=== PATIENT | male | born 1950 | race Caucasian/White ===

== ENCOUNTER 2021-04-20 07:40 | Emergency (ER) | payer MEDICARE, SELFPAY ==
[2021-04-20] VITALS (10 sets, daily range): BP systolic 98–133; BP diastolic 67–85; PULSE 62–74; RESP 12–23; TEMP 36.2; O2SAT 94–100; BMI 23.0
--- NOTE | 2021-04-20 08:45 | CT_ITS ---
STUDY: CT ABDOMEN AND PELVIS WITH CONTRAST REASON FOR EXAM: Male, 71 years old. Hematuria, anorexia/weight loss -- NO po contrast needed. RADIATION DOSAGE (If Supplied By Facility): CTDIvol = ( 8.86 ) mGy, DLP = ( 402.48 ) mGycm TECHNIQUE: Transaxial images were obtained from the dome of the diaphragm to the symphysis pubis without oral contrast. IV 75mL Isovue-300 was administered. Sagittal and coronal images were reconstructed. Individualized dose optimization techniques were used for this CT. COMPARISON: None. FINDINGS: The visualized lung bases are unremarkable. The visualized portions of the heart are within normal limits. Ascites. Multiple hypodense nodules are seen throughout both lobes of the liver suggestive of metastatic disease. There is evidence of a periportal and peripancreatic lymphadenopathy. Diffuse gallbladder wall thickening with the pericholecystic fluid. Findings suggestive of a tiny gallstones within the gallbladder lumen. Normal spleen. There is a 3.6 cm x 2.5 cm hypodense mass in the tail portion of the pancreas. A pancreatic neoplastic process should be ruled out. Normal bilateral adrenal glands. Bilateral renal atrophy. Normal visualized stomach. Normal small intestine. Normal colon. The appendix is visualized and appears normal. There is diffuse atherosclerotic calcification of the abdominal aorta, without a demonstrated aneurysm. Normal inferior vena cava. There is borderline retroperitoneal lymphadenopathy with enlarged nodes no greater than 10mm in the short axis diameter. A suprapubic catheter is seen within the urinary bladder. The urinary bladder is empty and there is evidence of diffuse bladder wall thickening and large mass of the urinary bladder. Normal abdominal wall. There are degenerative changes of the visualized lumbar spine. Marked deformity of the femoral head and neck with flattening and subchondral cystic spaces. There is evidence of a screw fixation overlying the right greater trochanter. Is also evidence of a well-defined bony densities in the right hip joint suggestive of osteochondromatosis. CT/Abdomen/Pelvis WITH Contrast IMPRESSION: Findings suggestive of a pancreatic carcinoma with diffuse hepatic metastasis and periportal and peripancreatic lymphadenopathy. Diffuse ascites. Thickened gallbladder wall and small gallstones. Diffusely thickened urinary bladder wall and possible bladder mass with a suprapubic catheter. Electronically Signed: Jerrod Sheets MD at 10:49 EDT , Service support ,
--- NOTE | 2021-04-20 08:45 | EKG12_ITS ---
Test Reason : SOB Blood Pressure : / mmHG Vent. Rate : 059 BPM Atrial Rate : 059 BPM P-R Int : 140 ms QRS Dur : 084 ms QT Int : 426 ms P-R-T Axes : 064 053 060 degrees QTc Int : 421 ms Sinus bradycardia Otherwise normal ECG Confirmed by ROB SHANE, LULU ([id number]), offline editor LEBRON GARCÍA ([id number]) on 04/24/2021 7:52:01 AM Referred By: KATERYNA Confirmed By:LULU RIVAS MD
--- NOTE | 2021-04-20 08:47 | ED.VIS.DYS ---
HPI History of Present Illness Chief Complaint: Shortness of Breath Informant: patient Onset/Context/Timing Onset: Month(s) (several) Context: gradual Quality: Positive for Dyspnea on exertion Current Severity: Gone (at rest) Maximum Severity: Severe (Going up steps) Worsened by: Exertion Relieved by: Rest Associated Symptoms Negative for cough Chest Pain: Positive for None Narrative Narrative: Patient presents from for several symptoms that have been present for weeks and/or months. Dyspnea with exertion has been the longest, followed by loss of appetite/anorexia, and hematuria without clots or urinary retention for maybe 2 weeks. He denies any pain anywhere including his abdomen, back, chest. He states he just sits at home and watches TV and does not go anywhere. He has a roommate who has been worried about him and brought him to the ER today for evaluation. He has a PCP that he sees occasionally. He was vaccinated against Covid and is fully vaccinated. He has not been around anyone who has had Covid that he knows of. He has a suprapubic catheter that has been there for some time, he gets monthly changes at the PCP office at [facility], he does not know why he needs it. [facility] Medical History HTN (hypertension) Home Medications amlodipine 10 mg PO DAILY 04/20/21 [History Last Taken Unknown] lisinopril 20 mg PO BID 04/20/21 [History Last Taken Unknown] metoprolol tartrate 100 mg PO BID 04/20/21 [History Last Taken Unknown] Allergy/AdvReac Type Severity Reaction Status Date / Time No Known Allergies Allergy Verified 04/20/21 07:42 Social History Smoking Status: Current every day smoker tobacco type: cigarettes ROS ROS ED Constitutional Constitutional ED: Reports anorexia, poor appetite and weight loss; Denies chills or fever(s) Eyes Eyes: Denies change in vision or diplopia ENT ENT ED: Denies rhinorrhea or sore throat Cardiovascular Cardiovascular: Denies chest pain or palpitations Respiratory/Chest Respiratory/Chest: Reports dyspnea on exertion; Denies cough Gastrointestinal Gastrointestinal: Denies abdominal pain, diarrhea, nausea or vomiting Genitourinary Genitourinary ED: Reports hematuria; Denies dysuria Musculoskeletal Musculoskeletal: Denies back pain or neck pain Integumentary Denies abscess or rash Neurologic Neurologic: Denies headache(s), paresthesias or weakness Psychiatric Psychiatric: Reports depression; Denies anxiety, confusion or suicidal thoughts EXAM Physical Exam Const Vital Signs: 04/20/21 07:42 04/20/21 07:59 04/20/21 08:45 Temperature 97.1 F L 97.1 F L 97.1 F L Temperature Source Temporal Temporal Temporal Pulse Rate 73 64 64 Respiratory Rate 12 23 H 18 Respiratory Effort Normal Non-Labored Respiratory Depth Normal Respiratory Pattern Normal Blood Pressure 106/74 108/85 H 98/67 Blood Pressure Mean 84 92 77 Pulse Ox 100 98 95 Oxygen Delivery Method Room Air Room Air Room Air Oxygen Flow Rate (L/min) 04/20/21 09:00 04/20/21 10:00 04/20/21 10:07 Temperature 97.1 F L 97.1 F L Temperature Source Temporal Temporal Pulse Rate 69 69 69 Respiratory Rate 16 16 16 Respiratory Effort Respiratory Depth Respiratory Pattern Blood Pressure 133/76 H 133/76 H 133/76 H Blood Pressure Mean 95 95 95 Pulse Ox 98 98 98 Oxygen Delivery Method Room Air Room Air Room Air Oxygen Flow Rate (L/min) 04/20/21 11:28 04/20/21 13:08 04/20/21 13:12 Temperature Temperature Source Pulse Rate 62 74 Respiratory Rate 14 20 H Respiratory Effort Respiratory Depth Respiratory Pattern Blood Pressure 106/70 103/76 103/76 Blood Pressure Mean 82 85 85 Pulse Ox 95 94 Oxygen Delivery Method Nasal Cannula Nasal Cannula Oxygen Flow Rate (L/min) 2 2 Positive well nourished, well developed and cachectic General Appearance ED: well developed, cachectic and NAD Nutritional Appearance: cachectic HEENT Reports moist mucous membranes normocephalic and atraumatic Eyes PERRL and EOMs intact bilaterally Neck full ROM and supple Neck Narrative: No lymphadenopathy and no Virchow' s nodes palpable. Resp clear to auscultation bilaterally Resp Narrative: Very diminished throughout all lung kim without any adventitious breath sounds or distress. Speaking full sentences. Cardio regular rate and regular rhythm Cardio Narrative: Very faint heart sounds Jugular Venous Distention: Negative for JVD GI non-tender and non-distended Auscultation: normoactive bowel sounds Palpation: soft Back/Spine no CVA tenderness General Back: other FROM Extremity normal to inspection General Extremety ED: Negative for edema, pulses abnormal or tenderness General Extremity: Negative for edema or pulses abnormal Neuro oriented x3, CN's II-XII intact bilaterally and no sensory deficits noted Sensorium / Orientation: awake and alert Motor Exam: strength 5/5 throughout Skin no rashes or lesions noted and no wounds MDM MDM MDM Narrative Medical decision making narrative: Unfortunately, this patient has multiple issues, the worst of which appears to to likely be metastatic pancreatic carcinoma. He also has a mass in his bladder that was probably causing the hematuria which is not present at this time grossly or on urinalysis. His elevated renal numbers are probably mostly due to dehydration. He has a leukocytosis without signs of any infection. Liver enzyme elevation including hyperbilirubinemia likely due to multiple hepatic masses. His chest x-ray and EKG are unremarkable, his dyspnea with exertion has been present for months, is likely chronic obstructive pulmonary process. He is not tachycardic, oxygen levels are 100% on room air, he is on metoprolol but I do not think this is likely pulmonary embolus. Patient's vital signs are normal. He clinically is stable and having no hematuria right now or urinary retention. I had a magalie discussion with him about the possibility of metastatic pancreatic cancer and the poor prognosis that confers. I think he has the capacity to understand this and make decisions for himself right now. Initially he just wanted to go home but I discovered that was more related to his insurance and him thinking that it would not be taken at this hospital, which is not the case. He was amenable to admission but really does prefer to go home. The patient certainly needs an oncology work-up, however I am not confident that he requires inpatient stay at this time. He does not want to be on hospice, and before making decisions about palliative care/hospice, he wants to know more about what he is dealing with with certainly I understand. Discussed with palliative care team here, it is Friday afternoon and no one is available to perform a consult on this patient today. They would be happy to see him as an outpatient and they agree that the consultation would be perfectly reasonable given his situation. I also discussed with one of the hospitalist, who opines that other than IV fluids which we provided for him in the emergency department, there would not be a lot to do as an inpatient, and agree that the patient could be reasonably managed as an outpatient if the patient's PCP is on board. I discussed with Dr. Bonilla his PCP, and he agreed to follow-up with him after the weekend and help him with direction and consultations. I will also refer the patient to our palliative care clinic since there is not a [facility] palliative care clinic in [place] that I am aware of. This was all discussed with the patient is comfortable with this overall plan we discussed reasons to return. Lab Data Attestation: I reviewed the patient's lab results. Labs: Laboratory Results - last 24 hr 04/20/21 04/20/21 04/20/21 07:55 07:55 08:53 WBC 18.3 H RBC 4.44 L Hgb 14.2 Hct 39.2 L MCV 88.3 MCH 32.0 MCHC 36.2 H RDW Std Deviation 42.1 RDW Coeff of [place] 13.1 Plt Count 251 MPV 10.1 Immature Gran % (Auto) 0.700 Neut % (Auto) 90.0 H Lymph % (Auto) 3.1 L [place] % (Auto) 5.5 Eos % (Auto) 0.5 Baso % (Auto) 0.2 Absolute Neuts (auto) 16.5 H Absolute Lymphs (auto) 0.56 L Nucleated RBC % 0.1 Differential Comment SCANNED Sodium 126 L Potassium 5.0 Chloride 94 L Carbon Dioxide 21.0 Anion Gap 11 BUN 61 H Creatinine 2.29 H Estim Creat Clear Calc 31.32 Est GFR (MDRD) Af Amer 36 L Est GFR (MDRD) Non-Af 30 L BUN/Creatinine Ratio 26.6 H Glucose 91 Calcium 8.9 Total Bilirubin 4.80 H AST 215 H ALT 166 H Alkaline Phosphatase 1118 H Total Protein 6.8 Albumin 2.1 L Globulin 4.7 H Albumin/Globulin Ratio 0.4 L Urine Color Straw Urine Clarity Clear Urine pH 8.0 Ur Specific [place] 1.010 Urine Protein Negative Urine Glucose (UA) Normal Urine Ketones Negative Urine Occult Blood Negative Urine Nitrite Negative Urine Bilirubin Negative Urine Urobilinogen Normal Ur Leukocyte Esterase Negative Urine RBC 0 SEEN Urine WBC 0 SEEN Ur Squamous Epith Cells 0-5 SEEN Urine Bacteria 0 SEEN Urine Mucus 0 SEEN Radiography Diagnostic Testing: Clinical Impression(s) from Imaging Studies Abdomen/Pelvis CT 04/20/21 08:45 IMPRESSION: Findings suggestive of a pancreatic carcinoma with diffuse hepatic metastasis and periportal and peripancreatic lymphadenopathy. Diffuse ascites. Thickened gallbladder wall and small gallstones. Diffusely thickened urinary bladder wall and possible bladder mass with a suprapubic catheter. Electronically Signed: Jerrod Sheets MD at 10:49 EDT , Service support , Chest X-Ray 04/20/21 09:40 IMPRESSION: Hyperinflation. The lungs are clear. Electronically Signed: Jerrod Sheets MD at 10:14 EDT , Service support , EKG Initial EKG: Attestation: I personally reviewed and interpreted this EKG as follows: Interpretation: No Acute Injury Pattern and Sinus Bradycardia (59) Discharge Plan Triage Chief Complaint: Shortness of Breath ED Provider: Chrsi Rivas Dx/Rx/DC Orders Clinical Impression: Mass of pancreas, Hepatic metastases, NETO (acute kidney injury), Dehydration, Hematuria, Bladder mass Instructions: ED Hematuria, ED Tumor, Uncertain Cause Prescriptions: No Action metoprolol tartrate 100 mg tablet 100 mg PO BID RF: 0 lisinopril 20 mg tablet 20 mg PO BID RF: 0 amlodipine 10 mg tablet 10 mg PO DAILY RF: 0 Primary Care Provider: Suhail Bonilla Referrals: Suhail Bonilla MD [Primary Care Provider] - 04/23/21 (call for appt) Yudi Trevino NP-C [Nurse Practitioner] - (call for appt) Activity Restrictions/Additional Instructions: Try to drink more fluids to the point of urinating at least 3 times per day. Disposition Disposition: Home, Self Care
[2021-04-20] MEDS: 0.9% Normal Saline 1,000 ML 999 ML IV ×2 (08:54→14:23)
[2021-04-20 08:57] LABS: Bacteria 0 SEEN /hpf (None Seen); Mucous, Urine 0 SEEN /hpf (<or=2+); Red Blood Cells-Urine 0 SEEN /hpf (0-5); White Blood Cells 0 SEEN /hpf (0-5)
[2021-04-20 09:08] LABS: Absolute Lymphocyte Count 0.56 X10^3/uL (0.83-4.51); Absolute Neutrophil Count 16.5 X10^3/uL (2.0-7.7); Basophil# 0.03 X10^3/uL; Basophil% 0.2 % (0-1); Eosinophils% 0.5 % (0-5); Hematocrit 39.2 % (40-54); Hemoglobin 14.2 g/dL (13.0-16.5); Lymphocyte # 0.56 X10^3/ul (0.83-4.51); Lymphocyte % 3.1 % (19-41); Mean Corp Hgb Conc 36.2 g/dL (32-36); Mean Corpuscular Volume 88.3 fL (80-94); Mean Platelet Vol. 10.1 fl (6.2-12.0); Monocyte% 5.5 % (0-10); NRBC Flagged by Analyzer 0.1 % (0-5); Neutrophil # 16.52 X10^3/uL (2.7-7.7); POSITIVE DIFFERENTIAL YES; Platelet Count 251 K/mm3 (150-450); RBC Distribution Width CV 13.1 % (11.6-14.6); RBC Distribution Width SD 42.1 fl (35.1-43.9); Red Blood Count 4.44 M/mm3 (4.6-6.2); White Blood Count 18.3 K/mm3 (4.4-11.0)
[2021-04-20 09:13] LABS: Differential Indicated SCAN CRITERIA MET
[2021-04-20 09:16] LABS: Color, Urine Straw (Yellow); Glucose, Dipstick Normal (Normal); Ketone-Dipstick Negative (Negative); Leukocyte Esterase-Dipstick Negative /ul (Negative); Nitrite-Dipstick Negative (Negative); Occult Blood-Urine Negative /ul (Negative); Protein-Dipstick Negative (Negative); Urine Bilirubin Dipstick Negative (Negative); Urine Clarity Clear (Clear); Urine Urobilinogen Normal (Normal)
[2021-04-20 09:31] LABS: Squamous Epithelial Cells - UA 0-5 SEEN /hpf (0-5)
[2021-04-20 09:34] LABS: Differential Comment SCANNED
[2021-04-20 09:37] LABS: ALB/GLOB Ratio 0.4 RATIO (0.9-2.4); AST(SGOT) 215 U/L (15-37); Alanine Aminotransfer ALT/SGPT 166 U/L (16-61); Albumin, Serum 2.1 g/dL (3.2-5.0); Alkaline Phosphatase 1118 U/L (45-117); Anion Gap 11 (5-15); BUN 61 mg/dL (7-18); BUN/Creat Ratio 26.6 RATIO (10-20); Calcium,Total 8.9 mg/dL (8.5-10.1); Chloride 94 mmol/L (98-107); Creatinine, Serum 2.29 mg/dL (0.70-1.30); EST Glomerular Filtration Rate 30 mL/min (>60); Est Glom Filt Rate - Afr Amer 36 mL/min (>60); Estimated Creatinine Clearance 31.32 ml/min; Globulin 4.7 g/dL (2.2-4.2); Glucose 91 mg/dL (74-106); Protein, Total 6.8 g/dL (6.4-8.2); Sodium Level 126 mmol/L (136-145)
--- NOTE | 2021-04-20 09:40 | RAD_ITS ---
STUDY: X-RAY CHEST REASON FOR EXAM: Male, 71 years old. Shortness of breath. Loss of appetite. TECHNIQUE: Single AP portable view of the chest. COMPARISON: None. FINDINGS: EKG electrodes are seen. There is hyperinflation of the lungs consistent with chronic obstructive lung disease (COPD). There is no demonstrated pleural abnormality. Normal size heart. Normal mediastinum and karla. Normal visualized pulmonary arteries. Normal visualized aortic arch and descending thoracic aorta. There are degenerative changes of the visualized thoracic spine. Normal visualized ribs, clavicles, and shoulders. There is no demonstrated abnormality of the visualized soft tissue structures of the upper abdomen. RAD/Chest 1 View (Portable) IMPRESSION: Hyperinflation. The lungs are clear. Electronically Signed: Jerrod Sheets MD at 10:14 EDT , Service support ,
== END 2021-04-20 16:36 | disposition home or self-care (01) ==
PROVIDERS: Emergency Provider Emergency Medicine; PCP Family Medicine
DX: K86.9 Disease of pancreas, unspecified (principal); C78.7 Secondary malignant neoplasm of liver and intrahepatic bile duct; E86.0 Dehydration; N17.9 Acute kidney failure, unspecified; N32.9 Bladder disorder, unspecified; R31.9 Hematuria, unspecified; F17.210 Nicotine dependence, cigarettes, uncomplicated; I10 Essential (primary) hypertension; K80.20 Calculus of gallbladder without cholecystitis without obstruction; Z79.899 Other long term (current) drug therapy
CPT/HCPCS: 71045; 74177; 80053; 81001; 85025; 87426; 93005; 96360; 96361; 99284; J7030; Q9967; A4216

== ENCOUNTER 2021-04-21 19:19 | Emergency (ER) | payer MEDICARE, SELFPAY ==
[2021-04-21 19:22] VITALS: BP 92/66; PULSE 75; RESP 20; TEMP 36.2; O2SAT 100
[2021-04-21 20:19] LABS: Mucous, Urine 0 SEEN /hpf (<or=2+); Red Blood Cells-Urine 0 SEEN /hpf (0-5); Squamous Epithelial Cells - UA 0 SEEN /hpf (0-5)
[2021-04-21 20:20] LABS: Color, Urine Brown (Yellow); Glucose, Dipstick Normal (Normal); Ketone-Dipstick 5 mg/dl (Negative); Leukocyte Esterase-Dipstick 500 /ul (Negative); Nitrite-Dipstick Negative (Negative); Occult Blood-Urine 250 /ul (Negative); Protein-Dipstick 100 mg/dl (Negative); Specific Gravity, Urine 1.015 (1.002-1.030); Urine Clarity Turbid (Clear); Urine Urobilinogen 8 mg/dl (Normal)
[2021-04-21 20:23] LABS: Urine Bilirubin Dipstick 1 mg/dL (Negative)
[2021-04-21 20:26] LABS: White Blood Cells >100 SEEN /hpf (0-5)
[2021-04-21 20:27] LABS: Bacteria 4+ /hpf (None Seen)
[2021-04-21 21:21] VITALS: BP 103/74; PULSE 69; RESP 17; O2SAT 95
--- NOTE | 2021-04-21 21:33 | EX.ED.GUMALE ---
HPI History of Present Illness Chief Complaint: Cabrera C/O Informant: patient Narrative Narrative: Patient is a 71-year-old male with history of suprapubic Cabrera catheter, inserted at the [facility] [place], presenting with dislodgment of his Cabrera catheter. Patient states it fell out last night. He called 911 because he did not have a ride and was brought to the emergency room today. He feels like he needs to urinate. He denies any other complaints at this time. Patient was seen in the ER yesterday for shortness of breath and at that time he had a thorough work-up which diagnosed him with NETO and metastatic pancreatic cancer. Patient was offered admission but declined stating he does not want to be in the hospital and will follow up with his primary care doctor on Friday. Patient has had no other symptoms since. He denies any other complaints at this time. He states he would still like to go home. [facility] Medical History HTN (hypertension) Home Medications amlodipine 10 mg PO DAILY 04/20/21 [History Last Taken Unknown] lisinopril 20 mg PO BID 04/20/21 [History Last Taken Unknown] metoprolol tartrate 100 mg PO BID 04/20/21 [History Last Taken Unknown] cephalexin 500 mg PO Q8H #21 cap 04/21/21 [Rx Last Taken Unknown] Allergy/AdvReac Type Severity Reaction Status Date / Time No Known Allergies Allergy Verified 04/21/21 19:24 Social History Smoking Status: Current every day smoker tobacco type: cigarettes ROS ROS ED Constitutional Constitutional ED: Reports weight loss; Denies chills, fever(s) or malaise Eyes Eyes: Denies blurry vision or loss of vision ENT ENT ED: Denies rhinorrhea or sore throat Cardiovascular Cardiovascular: Denies chest pain or dizziness Respiratory/Chest Respiratory/Chest: Reports dyspnea; Denies cough Gastrointestinal Gastrointestinal: Denies nausea or vomiting Genitourinary Genitourinary ED: Reports other Details: Dislodgment of suprapubic Cabrera catheter ; Denies dysuria or hematuria Musculoskeletal Musculoskeletal: Denies arthralgias or myalgias Integumentary Denies rash or wounds Neurologic Neurologic: Reports weakness; Denies focal weakness or headache(s) Psychiatric Psychiatric: Denies anxiety or behavioral changes EXAM Physical Exam Const Vital Signs: 04/21/21 19:22 04/21/21 21:21 Temperature 97.2 F L Temperature Source Temporal Pulse Rate 75 69 Respiratory Rate 20 H 17 Blood Pressure 92/66 103/74 Blood Pressure Mean 74 83 Pulse Ox 100 95 Oxygen Delivery Method Room Air Room Air Positive cachectic and unkempt General Appearance ED: unkempt and cachectic Nutritional Appearance: cachectic HEENT Reports moist mucous membranes normocephalic and atraumatic Eyes PERRL and EOMs intact bilaterally Neck supple Resp normal respiratory effort and clear to auscultation bilaterally Cardio regular rate, regular rhythm and no murmurs GI non-tender and non-distended Auscultation: normoactive bowel sounds Palpation: soft Narrative: Suprapubic catheter tract in place. No catheter there. Penis: normal penis and circumcised Extremity General Extremety ED: Negative for edema or tenderness General Extremity: Negative for edema Neuro oriented x3 and CN's II-XII intact bilaterally Sensorium / Orientation: alert Motor Exam: general weakness Psych Appearance: unkempt MDM MDM MDM Narrative Medical decision making narrative: Patient is evaluated after his suprapubic Cabrera catheter fell out. Is been out for about 24 hours. I did attempt to reinsert it but it was unsuccessful. I believe the tract might have closed. Nursing staff was able to place a traditional Cabrera catheter in so he did not have urinary retention. Patient's urine is concerning for infection with 500 leukoesterase, greater than 100 white blood cells and 4+ bacteria. Urinalysis yesterday was normal. Culture sent and patient started on Keflex. Is given first dose in the emergency room. Patient did have multiple laboratory and CT abnormalities yesterday but had declined admission. He again is offered admission given his recent NETO and now his UTI. He had a leukocytosis yesterday. Patient again declined stating he wants to just follow-up outpatient and is plan on getting a hospice evaluation on Friday. Patient is hemodynamically stable in the emergency room and does not appear septic. He does not appear dehydrated at this time. He has capacity to make these decisions. Patient is instructed to follow-up with his urologist this week in addition for replacement of his suprapubic Cabrera catheter. Patient is counseled on signs and symptoms requiring return to the emergency room. Patient verbalizes agreement and understand this plan. Patient discharged home in stable and improved condition. Lab Data Attestation: I reviewed the patient's lab results. Labs: Laboratory Results - last 24 hr 04/21/21 20:12 Urine Color Brown Urine Clarity Turbid Urine pH 8.0 Ur Specific [place] 1.015 Urine Protein 100 H Urine Glucose (UA) Normal Urine Ketones 5 H Urine Occult Blood 250 H Urine Nitrite Negative Urine Bilirubin 1 H Urine Urobilinogen 8 H Ur Leukocyte Esterase 500 H Urine RBC 0 SEEN Urine WBC >100 SEEN Ur Squamous Epith Cells 0 SEEN Urine Bacteria 4+ Urine Mucus 0 SEEN Discharge Plan Triage Chief Complaint: Cabrera C/O ED Provider: Cleo Howe Dx/Rx/DC Orders Clinical Impression: Suprapubic catheter dysfunction, History of urinary retention, Acute UTI Instructions: ED Cabrera Catheter, Care Prescriptions: New cephalexin 500 mg capsule 500 mg PO Q8H Qty: 21 RF: 0 No Action metoprolol tartrate 100 mg tablet 100 mg PO BID RF: 0 lisinopril 20 mg tablet 20 mg PO BID RF: 0 amlodipine 10 mg tablet 10 mg PO DAILY RF: 0 Primary Care Provider: Suhail Bonilla Referrals: Suhail Bonilla MD [Primary Care Provider] - Disposition Disposition: Home, Self Care Discharge Date/Time: 04/21/21 21:50
[2021-04-21] MEDS: Cephalexin 250 MG Capsule 500 MG PO (21:43)
== END 2021-04-21 21:50 | disposition home or self-care (01) ==
PROVIDERS: Emergency Provider Emergency Medicine; PCP Family Medicine
DX: T83.098A Other mechanical complication of other urinary catheter, initial encounter (principal); Y84.6 Urinary catheterization as the cause of abnormal reaction of the patient, or of later complication, without mention of misadventure at the time of the procedure; Y92.9 Unspecified place or not applicable; N39.0 Urinary tract infection, site not specified; I10 Essential (primary) hypertension; F17.210 Nicotine dependence, cigarettes, uncomplicated; Z85.07 Personal history of malignant neoplasm of pancreas; Z87.440 Personal history of urinary (tract) infections
CPT/HCPCS: 51702; 81001; 87077; 87086; 87088; 87186; 99285